=== PATIENT | female | born 1950 | race Caucasian/White ===

== ENCOUNTER 2017-07-28 08:14 | Emergency (ER) | payer MEDICARE, OTHER ==
[~2017-07-28] VITALS: Ht 157.5 cm; Wt 82.5 kg
[~2017-07-28 08:14] MED LIST: GLIMEPIRIDE1 MG PO; METFORMIN HYD1000 MG PO
[2017-07-28 08:47] LABS: EOS # 0.3 (0.04-0.40); EOS % 2.7 % (1.0-5.0); HEMATOCRIT 44.9 % (37.0-47.0); HEMOGLOBIN 14.9 g/dL (12.5-16.0); LYMPH# 4.1 (1.50-4.00); MEAN CELL VOLUME 87 fl (78-100); MEAN CORPUSCULAR HEMOGLOBIN 29 pg (27-31); MEAN CORPUSCULAR HGB CONC 33 g/dL (33-37); MEAN PLATELET VOLUME 10.4 fl (7.4-10.4); NEU # 4.6 (1.40-6.50); PLATELET COUNT 298 K/mm3 (130-400); RED BLOOD COUNT 5.15 M/mm3 (4.10-5.30); RED CELL DISTRIBUTION WIDTH 13.6 % (11.5-14.5); WHITE BLOOD COUNT 10.1 K/mm3 (4.8-10.8)
[2017-07-28 08:50] LABS: ALBUMIN 4.4 g/dL (3.5-5.0); BUN/CREATININE RATIO 17.5 (6.0-26.0); CALCIUM 10.8 mg/dL (8.4-10.2); POTASSIUM 3.6 mmol/L (3.6-5.0); TOTAL BILIRUBIN 0.6 mg/dL (0.2-1.3); TOTAL PROTEIN 7.9 g/dL (6.3-8.2)
[2017-07-28] MEDS ORDERED: CALCIUM + D3 E1 EACH PO (08:51)
[2017-07-28] MEDS ORDERED: ASPIR LOW81 MG PO (08:51)
[2017-07-28] MEDS ORDERED: HORSE CHESTNUT300 MG PO (08:52)
[2017-07-28] MEDS ORDERED: GLUCOSAMINE-CH1 EA25 PO (08:52)
[2017-07-28] MEDS ORDERED: MULTI-BETIC TA1 EACH PO (08:52)
[2017-07-28] MEDS ORDERED: FISH OIL1 IU PO (08:52)
[2017-07-28] MEDS ORDERED: CINNAMON PLUS1 EACH PO (08:52)
[2017-07-28 08:54] LABS: CKMB ISOENZYME 1.5 ng/mL (0.6-3.5)
[2017-07-28 08:57] LABS: PARTIAL THROMBOPLASTIN TIME 21.6 SECONDS (21.0-32.0); PROTHROMBIN TIME 8.5 SECONDS (9.0-12.0)
[2017-07-28 08:58] LABS: TROPONIN-I < 0.03 ng/mL (0.00-0.06)
[2017-07-28 09:14] LABS: D-DIMER 0.54 mg/L FEU (0.15-0.50)
[2017-07-28 10:07] LABS: URINE APPEARANCE CLEAR; URINE BILIRUBIN NEGATIVE (NEGATIVE); URINE BLOOD NEGATIVE (NEGATIVE); URINE COLOR YELLOW; URINE GLUCOSE NEGATIVE (NEGATIVE); URINE KETONE NEGATIVE (NEGATIVE); URINE LEUKOCYTE ESTERASE NEGATIVE (NEGATIVE); URINE MUCUS PRESENT (NOT PRESENT); URINE NITRATE NEGATIVE (NEGATIVE); URINE PROTEIN(semi-quant) TRACE mg/dL (NEGATIVE); URINE UROBILINOGEN NORMAL (NORMAL)
[2017-07-28] MEDS ORDERED: VALIUM 5MG T5 MG/TAB PO (10:27)
[2017-07-28 10:51] VITALS: BP 110/60
== END 2017-07-28 10:45 | disposition home or self-care (01) ==
LOC: ED 08:14
PROVIDERS: Physician Assistant
DX: H83.09 Labyrinthitis, unspecified ear (principal); R07.9 Chest pain, unspecified; R07.89 Other chest pain; F41.9 Anxiety disorder, unspecified; E11.9 Type 2 diabetes mellitus without complications; I10 Essential (primary) hypertension; E78.5 Hyperlipidemia, unspecified; R01.1 Cardiac murmur, unspecified; R06.4 Hyperventilation; Z79.84 Long term (current) use of oral hypoglycemic drugs

== ENCOUNTER 2018-11-10 06:21 | Emergency (ER) | payer MEDICARE, OTHER ==
[~2018-11-10 06:21] MED LIST changes: +ASPIR LOW81 MG PO; +CALCIUM + D3 E1 EACH PO; +CINNAMON PLUS1 EACH PO; +FISH OIL1 IU PO; +GLUCOSAMINE-CH1 EA25 PO; +HORSE CHESTNUT300 MG PO; +MULTI-BETIC TA1 EACH PO; +VALIUM 5MG T5 MG/TAB PO
[2018-11-10] MEDS ORDERED: CELEXA 20MG20 MG/TA1 PO (06:37)
[2018-11-10 07:11] LABS: EOS # 0.1 (0.04-0.40); EOS % 1.3 % (1.0-5.0); HEMATOCRIT 41.4 % (37.0-47.0); MEAN CELL VOLUME 86 fl (78-100); MEAN CORPUSCULAR HEMOGLOBIN 29 pg (27-31); MEAN CORPUSCULAR HGB CONC 34 g/dL (33-37); MEAN PLATELET VOLUME 10.8 fl (7.4-10.4); NEU # 6.8 (1.40-6.50); PLATELET COUNT 291 K/mm3 (130-400); RED BLOOD COUNT 4.82 M/mm3 (4.10-5.30); RED CELL DISTRIBUTION WIDTH 13.7 % (11.5-14.5)
[2018-11-10 07:24] LABS: ALBUMIN 4.3 g/dL (3.5-5.0); CALCIUM 10.8 mg/dL (8.4-10.2); POTASSIUM 4.3 mmol/L (3.6-5.0); TOTAL BILIRUBIN 0.6 mg/dL (0.2-1.3); TOTAL PROTEIN 7.4 g/dL (6.3-8.2)
[2018-11-10 08:39] LABS: URINE APPEARANCE CLEAR; URINE COLOR YELLOW; URINE GLUCOSE NEGATIVE (NEGATIVE); URINE KETONE SMALL (NEGATIVE); URINE PROTEIN(semi-quant) TRACE mg/dL (NEGATIVE)
[2018-11-10 08:40] LABS: URINE BILIRUBIN NEGATIVE (NEGATIVE); URINE BLOOD NEGATIVE (NEGATIVE); URINE LEUKOCYTE ESTERASE NEGATIVE (NEGATIVE); URINE NITRATE NEGATIVE (NEGATIVE); URINE UROBILINOGEN NORMAL (NORMAL)
[2018-11-10] MEDS ORDERED: ZANTAC150 M1 PO (11:30)
[2018-11-10] MEDS ORDERED: PROTONIX TR40 M1 PO (11:30)
[2018-11-10 11:55] VITALS: BP 131/63
== END 2018-11-10 11:38 | disposition home or self-care (01) ==
LOC: ED 06:21
PROVIDERS: Physician Assistant
DX: K21.9 Gastro-esophageal reflux disease without esophagitis (principal); E86.0 Dehydration; R19.7 Diarrhea, unspecified; E78.5 Hyperlipidemia, unspecified; E11.9 Type 2 diabetes mellitus without complications; Z79.84 Long term (current) use of oral hypoglycemic drugs; Z79.82 Long term (current) use of aspirin; Z88.2 Allergy status to sulfonamides; Z88.8 Allergy status to other drugs, medicaments and biological substances; Z90.49 Acquired absence of other specified parts of digestive tract; Z90.710 Acquired absence of both cervix and uterus
CPT/HCPCS: C9113; J2405; J7030; J7120; Q9967

== ENCOUNTER 2020-03-14 14:52 | Emergency (ER) | payer MEDICARE, OTHER ==
[~2020-03-14] VITALS: Ht 157.5 cm; Wt 90.0 kg
[~2020-03-14 14:52] MED LIST changes: +CELEXA 20MG20 MG/TA1 PO; +PROTONIX TR40 M1 PO; +ZANTAC150 M1 PO
[2020-03-14 16:32] VITALS: BP 152/70
== END 2020-03-14 16:52 | disposition home or self-care (01) ==
LOC: ED 14:52
DX: S09.90XA Unspecified injury of head, initial encounter (principal); S01.01XA Laceration without foreign body of scalp, initial encounter; E11.9 Type 2 diabetes mellitus without complications; Z23 Encounter for immunization; Z79.82 Long term (current) use of aspirin; Z79.84 Long term (current) use of oral hypoglycemic drugs; W10.9XXA Fall (on) (from) unspecified stairs and steps, initial encounter; W22.8XXA Striking against or struck by other objects, initial encounter; Y92.009 Unspecified place in unspecified non-institutional (private) residence as the place of occurrence of the external cause
CPT/HCPCS: 90715

== ENCOUNTER → 2020-03-18 | Outpatient (CLI) | payer MEDICARE, OTHER ==
[2020-03-14 16:32] VITALS: BP 152/70
== END ==
LOC: RAD 11:28
DX: S06.2X9A Diffuse traumatic brain injury with loss of consciousness of unspecified duration, initial encounter (principal); W10.9XXA Fall (on) (from) unspecified stairs and steps, initial encounter; Z98.1 Arthrodesis status

== ENCOUNTER → 2022-01-26 | Outpatient (CLI) | payer MEDICARE, OTHER | LOC: RAD 09:30 | DX: I67.82 Cerebral ischemia (principal) ==

== ENCOUNTER 2024-08-29 11:28 | Emergency (ER) | payer MEDICARE, OTHER ==
[~2024-08-29] VITALS: Ht 154.9 cm; Wt 97.7 kg
[2024-08-29] MEDS ORDERED: DONEPEZIL HCL5 M1 PO (11:47)
[2024-08-29] MEDS ORDERED: NS 500 ML IV SCH (12:15)
[2024-08-29] MEDS ORDERED: Meclizine 12.5 MG TAB PO ONE (12:15)
[2024-08-29 12:23] LABS: HEMATOCRIT 32.1 % (37.0-47.0); HEMOGLOBIN 11.3 g/dL (12.5-16.0); MEAN CELL VOLUME 85 fl (78-100); MEAN CORPUSCULAR HEMOGLOBIN 30 pg (27-31); MEAN CORPUSCULAR HGB CONC 35 g/dL (33-37); MEAN PLATELET VOLUME 10.3 fl (7.4-10.4); PLATELET COUNT 227 K/mm3 (130-400); RED BLOOD COUNT 3.79 M/mm3 (4.10-5.30); RED CELL DISTRIBUTION WIDTH 13.9 % (11.5-14.5); WHITE BLOOD COUNT 7.4 K/mm3 (4.8-10.8)
[2024-08-29 12:28] LABS: ALBUMIN 3.5 g/dL (3.4-4.8); SODIUM 132 mmol/L (136-145)
[2024-08-29 12:29] LABS: CALCIUM 9.2 mg/dL (8.3-10.5)
[2024-08-29 12:30] LABS: GLUCOSE 271 mg/dL (65-105); TOTAL PROTEIN 6.2 g/dL (6.2-8.1)
[2024-08-29 12:31] LABS: CARBON DIOXIDE 21 mmol/L (23-31)
[2024-08-29 12:32] LABS: TOTAL BILIRUBIN 0.5 mg/dL (0.2-1.2)
[2024-08-29 12:36] LABS: AST-SGOT 31 U/L (5-34)
[2024-08-29 12:37] LABS: ALT/SGPT 24 U/L (0-55)
[2024-08-29 12:43] LABS: TROPONIN-I < 0.030 ng/mL (0.00-0.033)
[2024-08-29 12:45] LABS: LYMPHOCYTE 7 % (20-51); MONOCYTE 6 % (3-10); NEUTROPHILS 87 % (42-75)
[2024-08-29 13:51] LABS: URINE APPEARANCE SLIGHTLY CLOUDY (CLEAR); URINE BILIRUBIN 1+ (NEGATIVE); URINE BLOOD TRACE (NEGATIVE); URINE COLOR YELLOW (YELLOW); URINE GLUCOSE 2+ (NEGATIVE); URINE KETONE 3+ (NEGATIVE); URINE LEUKOCYTE ESTERASE TRACE (NEGATIVE); URINE NITRATE POSITIVE (NEGATIVE); URINE PROTEIN(semi-quant) 2+ (NEGATIVE)
[2024-08-29 13:52] LABS: URINE MUCUS PRESENT (NOT PRESENT); URINE WBC 16-30 /hpf (0-3)
[2024-08-29] MEDS ORDERED: cefTRIAXone 1 G in Water For Injection,Sterile 10 ML IV ONE (14:30)
[2024-08-29] MEDS ORDERED: CEPHALEXIN500 M1 PO (14:32)
[2024-08-29] MEDS ORDERED: ZOFRAN ODT4 MG PO (14:32)
[2024-08-29 14:48] VITALS: BP 115/60
== END 2024-08-29 14:48 | disposition home or self-care (01) ==
LOC: ED 11:28
PROVIDERS: Physician Assistant
DX: N39.0 Urinary tract infection, site not specified (principal); R11.2 Nausea with vomiting, unspecified; Z88.2 Allergy status to sulfonamides
CPT/HCPCS: J0696; J7040

== ENCOUNTER 2024-09-11 12:05 | Emergency (ER) | payer MEDICARE, OTHER ==
[~2024-09-11] VITALS: Ht 154.9 cm; Wt 88.8 kg
[~2024-09-11 12:05] MED LIST changes: +CEPHALEXIN500 M1 PO; +DONEPEZIL HCL5 M1 PO; +ZOFRAN ODT4 MG PO
[2024-09-11] MEDS ORDERED: Acetaminophen 500 MG TAB PO ONE (12:15)
[2024-09-11 12:33] LABS: BASO # 0.01 K/mm3 (0.02-0.10); EOS # 0.03 K/mm3 (0.04-0.40); EOS % 0.2 % (1.0-5.0); HEMATOCRIT 34.2 % (37.0-47.0); HEMOGLOBIN 11.3 g/dL (12.5-16.0); LYMPH# 1.12 K/mm3 (1.50-4.00); MEAN CELL VOLUME 83 fl (78-100); MEAN CORPUSCULAR HEMOGLOBIN 27 pg (27-31); MEAN CORPUSCULAR HGB CONC 33 g/dL (33-37); MEAN PLATELET VOLUME 10.1 fl (7.4-10.4); MONO # 0.99 K/mm3 (0.20-0.80); NEU # 9.95 K/mm3 (1.40-6.50); PLATELET COUNT 287 K/mm3 (130-400); RED BLOOD COUNT 4.13 M/mm3 (4.10-5.30); RED CELL DISTRIBUTION WIDTH 13.9 % (11.5-14.5); WHITE BLOOD COUNT 12.2 K/mm3 (4.8-10.8)
[2024-09-11 14:07] VITALS: BP 118/60
== END 2024-09-11 14:07 | disposition home or self-care (01) ==
LOC: ED 12:05
PROVIDERS: Nurse Practitioner Family
DX: M25.462 Effusion, left knee (principal)

== ENCOUNTER → 2024-09-15 | Outpatient (CLI) | payer MEDICARE, OTHER | LOC: RAD 14:40 | DX: M18.9 Osteoarthritis of first carpometacarpal joint, unspecified (principal); M19.042 Primary osteoarthritis, left hand; Z87.828 Personal history of other (healed) physical injury and trauma; Z91.81 History of falling ==